=== PATIENT | male | born 1965 | race American Indian/Alaskan Native ===

== ENCOUNTER 2018-12-02 14:00 | Outpatient (CLI) | payer BC ==
--- NOTE | 2018-12-02 14:53 | Mammography Report ---
BILATERAL DIGITAL DIAGNOSTIC MAMMOGRAM with CAD: 12/02/18 CLINICAL: 53-year-old male with left breast enlargement. COMPARISON:None. FINDINGS: The breasts are almost entirely fatty.A left retroareolar fat density mass measures 7.2 x 6.3 x 5.0 cm. It has a very thin smooth capsule. No other mass. No architectural distortion or suspicious calcifications. IMPRESSION: A benign 7 cm left retroareolar lipoma and otherwise negative study. BI-RADS CATEGORY: 2 -- Benign RECOMMENDATION: Clinical follow-up. Any decision to biopsy should be based on the clinical findings. COMMENT: Patient follow-up letters are generated by our [employer] application.
== END 2018-12-02 14:01 | disposition home or self-care (01) ==
LOC: SPVWC 14:00
PROVIDERS: ATTEND Surgery
DX: D17.39 Benign lipomatous neoplasm of skin and subcutaneous tissue of other sites (principal)
CPT/HCPCS: 77066

== ENCOUNTER 2018-12-19 14:18 | Outpatient (CLI) | payer BC, OTHER | END 2018-12-19 14:19 | disposition home or self-care (01) | LOC: LABHHL 14:18 | PROVIDERS: ATTEND Surgery | DX: N63.23 Unspecified lump in the left breast, lower outer quadrant (principal) | CPT/HCPCS: 88305 ==